=== PATIENT | female | born 1980 | race Caucasian/White ===

== ENCOUNTER 2023-06-21 13:19 | Emergency (ER) | payer OTHER ==
[2023-06-21 15:42] LABS: Hematocrit 32.4 % (34.9-44.5); Hemoglobin 10.6 g/dL (12.0-15.5); Mean Corpuscular HGB CONC 32.7 g/dL (32.0-36.0); Mean Corpuscular Hemoglobin 29.8 pg (27.0-33.0); Mean Platelet Volume 10.5 fl (7.4-10.4); Platelet Count 293 10x3/uL (150-450); RBC Distribution Width 17.2 % (11.5-14.5); Red Blood Cell (RBC) Count 3.56 10x6/uL (3.90-5.03); White Blood Cell (WBC) Count 5.7 10x3/uL (3.5-10.5)
[2023-06-21 15:45] LABS: PTT 30.3 sec (22.0-33.0); Prothrombin Time 10.3 sec (9.5-12.1)
[2023-06-21 15:49] LABS: ALT (SGPT) 20 U/L (8-55); AST (SGOT) 39 U/L (5-34); Albumin 3.5 g/dL (3.5-5.0); Alkaline Phosphatase 67 U/L (40-110); Anion Gap 9 mmol/L (10-20); BUN (Urea Nitrogen) 13 mg/dL (7.0-18.7); Bilirubin, Total 0.2 mg/dL (0.2-1.2); Calc. Creatinine Clearance 0 mL/min (70-130); Calcium 8.4 mg/dL (7.8-10.44); Carbon Dioxide 30 mmol/L (22-29); Chloride 103 mmol/L (98-107); Estimated GFR 97; Globulin 3.3 g/dL (2.4-3.5); Glucose 93 mg/dL (70-105); Lipase 19 U/L (8-78); Magnesium 1.8 mg/dL (1.6-2.6); Potassium 4.2 mmol/L (3.5-5.1); Protein, Total 6.8 g/dL (6.0-8.3); Sodium 138 mmol/L (136-145)
[2023-06-21 16:34] LABS: MDiff Complete? YES
[2023-06-21 17:38] LABS: Eosinophils 7 % (0-10); Lymphocytes 28 % (21-51); Monocytes 12 % (0-10); Neutrophil 52 % (42-75)
[2023-06-21 17:41] LABS: Large Platelets SLIGHT (None Seen); Platelet Adequacy Comment Appears Adequate; RBC Morph Comment Within Normal Limits
== END 2023-06-21 16:55 | disposition home or self-care (01) ==
LOC: CSHERS 13:19
DX: R60.0 Localized edema (principal)
CPT/HCPCS: 36415; 80053; 83690; 83735; 83880; 85025; 85610; 85730; 93005

== ENCOUNTER 2023-06-23 15:43 | Emergency (ER) | payer OTHER | END 2023-06-23 19:02 | disposition home or self-care (01) | LOC: CSHERS 15:43 | DX: R25.2 Cramp and spasm (principal) ==